=== PATIENT | female | born 1940 | race Caucasian/White ===

== ENCOUNTER 2023-11-12 05:52 | Day surgery (SDC) | payer OTHER, SELFPAY ==
[2023-10-28 09:58] VITALS: BMI 22.0
[2023-10-28 10:25] LABS: % Basophils 0.8 % (0-2); % Immature Granulocytes 0.7 % (0-0.5); % Lymphocytes 15.7 % (20.5-51.1); % Monocytes 12.2 % (1.7-9.3); % Neutrophils 68.6 % (42.2-75.2); Absolute Basophils 0.1 10^3/uL (0-0.2); Absolute Eosinophils 0.2 10^3/uL (0-0.7); Absolute Immature Granulocytes 0.1 10^3/uL (0-0.05); Absolute Lymphocytes 1.2 10^3/uL (1.2-3.4); Absolute Monocytes 0.9 10^3/uL (0.1-0.6); Absolute Neutrophils 5.1 10^3/uL (1.4-6.5); Hematocrit 42.5 % (37.0-47.0); Hemoglobin 14.4 g/dL (12.0-16.0); Mean Corp Hgb Conc. 33.9 g/dL (33.0-37.0); Mean Corpuscular Hgb 32.1 pg (27.0-31.0); Mean Corpuscular Volume 94.7 fL (81.0-99.0); Nucleated Red Blood Cells % 0 %; Platelet Count 208 10^3/uL (130-400); Red Blood Cell Count 4.49 10^6/uL (4.20-5.40); Red Cell Dist. Width 14.2 % (11.5-14.5); White Blood Cell Count 7.5 10^3/uL (4.8-10.8)
[2023-10-28 10:34] LABS: ALT (SGPT) 23 U/L (0-35); AST (SGOT) 33 U/L (14-36); Albumin 4.3 g/dl (3.5-5.0); Alkaline Phosphatase 97 U/L (38-126); Blood Urea Nitrogen 24 mg/dl (7-17); Calcium 10.4 mg/dl (8.4-10.2); Carbon Dioxide 31 mmol/L (22-30); Chloride 102 mmol/L (98-107); Estimated Creatinine Clearance 32 ml/min; Glucose 98 mg/dl (70-99); INR 1.03; PT 13.6 Sec (11.4-14.6); Potassium 4.4 mmol/L (3.5-5.1); Sodium 138 mmol/L (135-145); Total Bilirubin 0.6 mg/dl (0.2-1.3); Total Protein 6.4 g/dl (6.3-8.2)
[2023-11-12] VITALS (19 sets, daily range): BP systolic 108–137; BP diastolic 57–101; BMI 22.0
[2023-11-12 08:52] LABS: ACT-LR - POC 94 Seconds (116-155)
[2023-11-12 08:57] LABS: ACT-LR - POC 218 Seconds (116-155)
--- NOTE | 2023-11-12 09:58 | ITS.CL.ABL ---
[employer] [facility] - Ablation
Ablation
Procedure Report:
ELECTROPHYSIOLOGY ABLATION STUDY
�
DATE:: November 12, 2023�����������������������������REFERRING: Dr. Primo jaramillo
�
INDICATION: Paroxysmal supraventricular tachycardia in the form of atrial fibrillation.��Refractory to amiodarone
�
HISTORY: See H and P.��As above
�
ANTIARRHYTHMIC DRUG: Amiodarone
�
PRE-PROCEDURE ALCIDES: No atrial thrombus
�
PRESENTING RHYTHM: Sinus rhythm
�
'TIME-OUT':��called and confirmed.
�
SEDATION/ANESTHESIA:��provided via the anesthesia department using general anesthesia (LMA).
�
INTRAVENOUS/ARTERIAL ACCESS:
Right femoral venous - , 8Fr
Left femoral venous - 9 Fr, 7 Fr
Ultrasound guidance for bilateral femoral vein access was utilized by me to obtain access with demonstration of normal anatomy
CHADS-VASC Score:
�
HAS-Bled Score
�
PROCEDURE:
1.��A decapolar CS catheter was placed within the CS for mapping and pacing.��This was also used as the reference catheter for the 3-D map.
�
2. The intracardiac ultrasound catheter was positioned in the RA to identify the FO for targeting of transseptal puncture, assist��in identification of the pulmonary vein ostia, monitoring pre and post ablation pulmonary vein flow velocities,
monitoring for 'bubble' formation during RF application as a sign of thermal injury,��and to monitor for pericardial effusion during mapping and ablation procedure.���Left atrial size, LV ejection fraction, and pulmonary vein flows were monitored
pre and post ablation procedure. The other valves were inspected and found to be free of significant regurgitation or stenosis.
�
3.��Half of the calculated heparin bolus was administered prior to the first transeptal puncture.��Transseptal puncture was performed to diagnose RA and LA pressure so that safety of LA mapping and ablation could be further assessed, and to access
the left atrium and pulmonary veins for mapping and ablation.��This entailed advancing an 8 Fr SL-1 sheath with dilator into the superior vena cava and withdrawing both (monitoring intracardiac ultrasound, fluoroscopy and tip pressure) with the tip
oriented toward the atrial septum.��The fossa ovalis was engaged (indicated by sudden displacement of the sheath tip as well as tenting of the fossa seen on intracardiac ultrasound).��Left atrial access required a pass with the Brockenbrough needle
extended.��Left atrial catheter position was confirmed by pressure monitoring (RA mean pressure 8 mm Hg and LA mean pressure 14 mm Hg), LA saturation (99%),��as well as fluoroscopy.��The sheath was advanced over the dilator and positioned in the
left atrium.��This procedure was repeated for the Agilis sheath.��The remainder of the calculated heparin bolus was administered and heparin was
infused to maintain ACT at 300 -350 seconds throughout the case.
�
4.��RA pacing was performed via the proximal decapolar poles and LA pacing was performed via the distal decapolr poles.
�
5. A quadrapolar catheter was first positioned at the His position for His Bundle recording which was tagged via the 3-D Navex sytem, and then passed to the RVA for RV pacing and recording.
�
6. The grid and multipolar catheter were placed in each of the LIPV, LSPV, RSPV and the RIPV.��
�
7.��Next, a 3-D map was created using Navex.���A 3-D reconstructed CT image was compared to the 3-D Navex map to assist in anatomic interpretation, mapping and ablation.��The CT image and the NavX image were fused.
�
8. A total of 82 lesions were given to the pulmonary veins and the posterior wall. Isolation of all 4 veins and the posterior wall was fashioned.
�
9. Patient was noninducible for other arrhythmias
�
TOTAL FLOURO TIME: 12 minutes 86 mGy
�
TOTAL RF DURATION: 0 minutes
�
REVERSAL OF HEPARIN: 35 mg of protamine, slow IV administration
�
COMPLICATIONS:
None
Intracardiac US shows no pericardial effusion post ablation.
�
SUMMARY:��
Complex left atrial mapping and ablation.
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
�
RECOMMENDATIONS:
1. Admit to monitored bed.��
2. Resume anticoagulation
3.� Out of bed 4 hours
4.��Discontinue amiodarone
�
Copy to: Dr. Primo Jaramillo
�
--- NOTE | 2023-11-12 12:55 | PTCARENOTE ---
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 Bilateral groin dressings CDI, no evidence of hematoma. SR on the monitor, HR in the 60s. 98% on 1L oxygen. Patient oriented to room, call sharma within reach.
--- NOTE | 2023-11-12 14:38 | CM ---
CM following for DC planning needs.
Met w/ patient at bedside to complete initial assessment.
Pt. resides in a private, [address] [place] [address] with 13 KAREN. Functionally, patient is indep. w/ ADLs, mobility without the use of any assisted device.
Pt. has Rx plan and uses [facility] in [facility].
Anticipated DC plan is for home, no needs.
CM to follow.
[2023-11-12] MEDS: NORVASC 2.5 MG PO (18:19)
[2023-11-12] MEDS: ELIQUIS 2.5 MG PO (20:12)
[2023-11-12] MEDS: LOPRESSOR 12.5 MG PO (20:12)
--- NOTE | 2023-11-12 21:56 | PTCARENOTE ---
B/l groins are c/d/i. No hematoma/bleeding noted. Tele- SR. HR 60-70s. Pt ambulatory around room w/ RN standby assist and steady gait. Pt has no c/o at this time. Currently in bed; call zachary w/in reach.
[2023-11-12] MEDS: ANESTHETIC LOZENGE 1 LOZENGE PO (23:55)
[2023-11-13 03:47] VITALS: BP 130/60
[2023-11-13 04:24] LABS: Hematocrit 37.1 % (37.0-47.0); Hemoglobin 12.8 g/dL (12.0-16.0); Mean Corp Hgb Conc. 34.5 g/dL (33.0-37.0); Mean Corpuscular Hgb 31.7 pg (27.0-31.0); Mean Corpuscular Volume 91.8 fL (81.0-99.0); Platelet Count 262 10^3/uL (130-400); Red Blood Cell Count 4.04 10^6/uL (4.20-5.40); Red Cell Dist. Width 14.6 % (11.5-14.5); White Blood Cell Count 16.1 10^3/uL (4.8-10.8)
[2023-11-13 04:39] LABS: Blood Urea Nitrogen 28 mg/dl (7-17); Calcium 10.3 mg/dl (8.4-10.2); Carbon Dioxide 25 mmol/L (22-30); Chloride 100 mmol/L (98-107); Estimated Creatinine Clearance 40 ml/min; Glucose 125 mg/dl (70-99); Sodium 138 mmol/L (135-145); eGFR > 60.00
[2023-11-13 07:21] VITALS: BP 115/65
[2023-11-13 07:28] VITALS: BMI 22.3
[2023-11-13] MEDS: LOPRESSOR 12.5 MG PO (08:24)
[2023-11-13] MEDS: ELIQUIS 2.5 MG PO (08:24)
[2023-11-13] MEDS: PROTONIX 40 MG PO (08:24)
[2023-11-13 08:26] VITALS: BP 123/65
--- NOTE | 2023-11-13 08:28 | W.PN.CARDCBS ---
Addendum entered and electronically signed by Gentry Ignacio MD 11/13/23 11:10:
patient seen
agree with STACKER ATTENDANT note and assessment
agree with STACKER ATTENDANT plan
SR on tele
exam: deferred
Impression:
Symptomatic paroxysmal Afib
post PVI 11/12/23
HTN
HLD
CVA
GERD
Osteoarthritis post TKR
Anxiety
lumbar disc disease
PVC's
Diverticulosis
SUMMARY:��
Complex left atrial mapping and ablation.
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
Plan:
post ablation feels good
leukocytosis secondary to intra op steroids, denies fevers, dysuria
groins stable
tele SR/SB
OAC Eliquis
Stop Amiodarone, continue metoprolol can titrate as outpt if Afib episodes recur
Activity restrictions reviewed
f/u Dr. Jaramillo in 1 mo
home today
Original Note:
Today's Communication / Plan
-
post ablation
stable for d/c home
Impression / Plan
-
PCP: Timothy Hartman MD
CDY: Primo Jaramillo MD
Impression:
Symptomatic paroxysmal Afib
post PVI 11/12/23
HTN
HLD
CVA
GERD
Osteoarthritis post TKR
Anxiety
lumbar disc disease
PVC's
Diverticulosis
SUMMARY:��
Complex left atrial mapping and ablation.
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
Plan:
post ablation feels good
leukocytosis secondary to intra op steroids, denies fevers, dysuria
groins stable
tele SR/SB
OAC Eliquis
Stop Amiodarone, continue metoprolol can titrate as outpt if Afib episodes recur
Activity restrictions reviewed
f/u Dr. Jaramillo in 1 mo
home today
�
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
Subjective
Date of Service: November 13, 2023
no cp, sob
Objective
Labs:
11/13/23 03:51
11/13/23 03:51
Labs
Hgb 12.8 g/dL (12.0-16.0) 11/13/23 03:51
Hct 37.1 % (37.0-47.0) 11/13/23 03:51
Plt Count 262 10^3/uL (130-400) 11/13/23 03:51
PT 13.6 Sec (11.4-14.6) 10/28/23 10:06
INR 1.03 10/28/23 10:06
Sodium 138 mmol/L (135-145) 11/13/23 03:51
Potassium 5.0 mmol/L (3.5-5.1) 11/13/23 03:51
BUN 28 mg/dl (7-17) H 11/13/23 03:51
Creatinine 0.8 mg/dL (0.6-1.0) 11/13/23 03:51
Glucose 125 mg/dl (70-99) H 11/13/23 03:51
Vital Signs and I&O:
Vital Signs
Temp Pulse Resp BP Pulse Ox
98.3 F 81 18 123/65 95
11/13/23 07:18 11/13/23 08:24 11/13/23 07:18 11/13/23 08:24 11/13/23 07:18
Vital Signs
Temp Pulse Resp BP Pulse Ox
98.3 F 81 18 123/65 95
11/13/23 07:18 11/13/23 08:24 11/13/23 07:18 11/13/23 08:24 11/13/23 07:18
Intake & Output
11/11/23 11/12/23 11/13/23 11/14/23
06:59 06:59 06:59 06:59
Intake Total 1540 / 1540
Balance 1540 / 1540
Physical Exam
Physical Exam
NAD< AOX3
S1, S2, RRR
faint crackles b/l bases cleared with cough, non labored
SNTND bsx4
b/l groins c/d/i no HT, soft
[2023-11-13] MEDS: TYLENOL 650 MG PO (09:20)
[2023-11-13] MEDS: ANESTHETIC LOZENGE 1 LOZENGE PO (09:21)
[2023-11-13 10:56] VITALS: BP 107/60
[2023-11-13 10:59] VITALS: BP 107/60
--- NOTE | 2023-11-13 11:20 | W.DS.TRANS ---
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
-
Discharge Instructions:
Sleep Apnea Risk Low
Discharge Diagnosis/Procedures Afib post ablation
Diet Low Sodium
Driving Restrictions No driving for 24 hours
Instructions:
Stand-Alone Forms: DC Instructions- Cath/EP Lab
Changes to Home Medications: Yes
Discharge Medications:
DC Medications w/original date entered in [employer]
alprazolam 0.25 mg tablet 0.25 mg PO HS PRN anxiety 10/23/23
amlodipine 5 mg tablet 2.5 mg PO DAILY 10/23/23
apixaban 2.5 mg tablet (Eliquis) 2.5 mg PO BID 10/23/23
metoprolol tartrate 25 mg tablet 12.5 mg PO BID 10/23/23
omeprazole 20 mg capsule,delayed release 20 mg PO DAILY 10/23/23
Home Medication Changes
stop amiodarone
Pending Results: No
--- NOTE | 2023-11-13 11:47 | CM ---
Patient for DC today, order noted.
DC plan is for home, no needs.
--- NOTE | 2023-11-13 12:13 | PTCARENOTE ---
Rec'd pt at change of shift. Pt on TELE monitor in NSR and VSS. Pt with bilat femoral sites CDI. Pt verbalized understanding of monitoring sites for bleeding and infection. Rec'd orders for discharge this morning. TELE monitor and INT were
removed on unit. Pt verbalized understanding of discharge instructions and home medications. Pt escorted off unit by staff @1200 via wheelchair. Pt taken home by family member. Pt left with belongings and discharge packet.
== END 2023-11-13 12:00 | disposition home or self-care (01) ==
LOC: CATH 05:52
PROVIDERS: Nurse Practitioner Adult Health; ATTENDING PHYSICIAN Internal Medicine Cardiovascular Disease; FAMILY PHYSICIAN Family Medicine; OTHER PHYSICIAN Internal Medicine Cardiovascular Disease
DX: I48.0 Paroxysmal atrial fibrillation (principal); I10 Essential (primary) hypertension; E78.5 Hyperlipidemia, unspecified; Z86.73 Personal history of transient ischemic attack (TIA), and cerebral infarction without residual deficits; K21.9 Gastro-esophageal reflux disease without esophagitis; M19.90 Unspecified osteoarthritis, unspecified site; F41.9 Anxiety disorder, unspecified; I49.3 Ventricular premature depolarization; K57.90 Diverticulosis of intestine, part unspecified, without perforation or abscess without bleeding; Z79.899 Other long term (current) drug therapy; N63.10 Unspecified lump in the right breast, unspecified quadrant; G47.00 Insomnia, unspecified; Z79.01 Long term (current) use of anticoagulants; Z90.710 Acquired absence of both cervix and uterus; Z88.0 Allergy status to penicillin; Z88.2 Allergy status to sulfonamides
CPT/HCPCS: C1732; C1894; C1730; C1733; C1769; C1892; C1759; 36415; 75572; 80048; 80053; 83735; 85025; 85027; 85347; 85610; 86850; 86900; 86901; 93005; 93656; Q9967